=== PATIENT | male | born 1960 | race Caucasian/White ===

== ENCOUNTER 2016-08-12 14:14 | Emergency (ER) | payer MEDICARE, OTHER, MEDICAID | END 2016-08-12 17:05 | disposition left against medical advice (07) | LOC: UCEAST 14:14 | DX: R50.9 Fever, unspecified (principal); Z53.21 Procedure and treatment not carried out due to patient leaving prior to being seen by health care provider ==

== ENCOUNTER 2016-08-12 20:24 | Emergency (ER) | payer MEDICARE, OTHER, MEDICAID ==
[2016-08-12 22:50] VITALS: BP 117/70
--- NOTE | 2016-08-12 22:58 | UC ---
Respiratory Complaint HPI - HPI Summary HPI Summary: 3 DAYS OF COUGH AND FEVER. REPORTS HE FEELS SLIGHTLY ACHY. DENIES ST, EAR PAIN, SOB, N/V/D. DID GET A FLU SHOT THIS SEASON. TMAX 103. EARLIER TODAY WAS 100.1 AND NOW IS AFEBRILE. STATES HE FEELS MAYBE A BIT BETTER TODAY THAN YESTERDAY. - History of Current Complaint Chief Complaint: UCRespiratory Stated Complaint: FLU SYMPTOMS Time Seen by Provider: 08/12/16 22:41 Hx Obtained From: Patient Onset/Duration: Gradual Onset, Lasting Days, Still Present Timing: Constant Severity Initially: Moderate Severity Currently: Moderate Pain Intensity: 0 Pain Scale Used: 0-10 Numeric Character: Cough: Nonproductive Aggravating Factors: Nothing Alleviating Factors: Nothing Associated Signs And Symptoms: Positive: Fever, URI, Nasal Congestion. Negative : Dyspnea, Chills, Pleuritic Chest Pain, Wheezing, Hemoptysis, Dizziness, Calf Pain, Calf Swelling, Edema, Hoarseness, Sinus Discomfort - Allergies/Home Medications Allergies/Adverse Reactions: Allergies Allergy/AdvReac Type Severity Reaction Status Date / Time CATS Allergy Unknown Unknown Uncoded 08/12/16 22:50 Reaction Details SEASONAL ALLERGIES Allergy Unknown Unknown Uncoded 08/12/16 22:50 Reaction Details Home Medications: Home Medications Acetaminophen TAB* [Tylenol TAB*] 650 mg PO Q4H PRN 08/12/16 [History Confirmed 08/12/16] Ibuprofen TAB* [Advil TAB*] 2 tab PO Q6H PRN 08/12/16 [History Confirmed ] Lszlzwur-[place] [Triple Antibiotic] 1 oin EX 08/12/16 [History] guaiFENesin LIQ* [Robitussin*] 08/12/16 [History] PMH/Surg Hx/FS Hx/Imm Hx Endocrine History Of: Reports: Thyroid Disease - HX THYROID CA Denies: Diabetes Cardiovascular History Of: Denies: Congestive Heart Failure GI/ History Of: Reports: Gall Bladder Disease, Kidney Stones Cancer History Of: Reports: Colorectal Cancer - Surgical History Surgical History: Yes Surgery Procedure, Year, and Place: CHOLECYSTECTOMY - Family History Known Family History: Positive: Other - positive FMH for laceration Family History: PT DOES NOT KNOW HIS FAMILY HX - Social History Alcohol Use: None Substance Use Type: None Smoking Status (MU): Never Smoked Tobacco - Immunization History Most Recent Influenza Vaccination: 01/2015 Most Recent Tetanus Shot: unknown Most Recent Pneumonia Vaccination: Never Review of Systems Constitutional: Fever ENT: Nasal Discharge Respiratory: Cough Cardiovascular: Negative Gastrointestinal: Negative Genitourinary: Negative All Other Systems Reviewed And Are Negative: Yes Physical Exam Triage Information Reviewed: Yes Appearance: Well-Appearing, No Pain Distress, Well-Nourished Vital Signs: Initial Vital Signs Temp 97.7 F 08/12/16 22:41 Pulse 76 08/12/16 22:41 Resp 18 08/12/16 22:41 BP 117/70 08/12/16 22:41 Pulse Ox 97 08/12/16 22:41 Vital Signs Reviewed: Yes Eyes: Positive: Conjunctiva Clear ENT: Positive: Hearing grossly normal, Pharynx normal, Other: - TMS NOT VISUALIZED DUE TO OBSTRUCTION BY CERUMEN Neck: Positive: Supple, Nontender, No Lymphadenopathy Respiratory Exam: Normal Cardiovascular Exam: Normal Abdomen Description: Positive: Soft Musculoskeletal: Positive: No Edema Neurological: Positive: Alert Psychological: Positive: Age Appropriate Behavior Skin: Negative: rashes UC Diagnostic Evaluation - Laboratory O2 Sat by Pulse Oximetry: 97 Respiratory Course/Dx - Differential Dx/Diagnosis Provider Diagnoses: ACUTE VIRAL SYNDROME Discharge - Discharge Plan Condition: Stable Disposition: HOME Patient Education Materials: Upper Respiratory Infection (ED), Viral Syndrome ( ED) Referrals: Justin Muhammad MD [Primary Care Provider] - If Needed Additional Instructions: NO EVIDENCE OF BACTERIAL INFECTION ON EXAM TODAY. YOUR SYMPTOMS ARE LIKELY VIRALLY MEDIATED AND SHOULD CONTINUE TO IMPROVE. REST, HYDRATE AND TAKE OTC IBUPROFEN NEEDED. SEEK FOLLOW-UP WITH YOUR PCP OR HERE IF YOU ARE NOT IMPROVING EXPECTED OVER THE NEXT 1-2 WEEKS.
== END 2016-08-12 23:10 | disposition home or self-care (01) ==
LOC: UCEAST 20:24
DX: R07.89 Other chest pain (principal); R06.02 Shortness of breath
CPT/HCPCS: 99211; G0463

== ENCOUNTER 2017-07-17 15:44 | Emergency (ER) | payer MEDICARE, OTHER, MEDICAID ==
[2017-07-17] MEDS ORDERED: Ondansetron INJ* 2 MG/ML VIAL IV ONE (17:49)
[2017-07-17] MEDS ORDERED: NS 0.9% 1000 ML* 1,000 ML IV ONE (17:49)
[2017-07-17] MEDS ORDERED: Morphine INJ* 4 MG/ML 1 ML CARPUJECT IV ONE (17:49)
[2017-07-17 18:18] LABS: ABS Basophils 0 10^3/ul (0-0.2); ABS Eosinophils 0 10^3/ul (0-0.6); ABS Lymphocytes 0.4 10^3/ul (1.0-4.8); ABS Monocytes 0.6 10^3/ul (0-0.8); ABS Neutrophils 9.4 10^3/ul (1.5-7.7); ABS Nucleated RBC 0 10^3/ul; Eosinophil % 0.1 % (0-6); Hematocrit 44 % (42-52); Hemoglobin 15.3 g/dl (14.0-18.0); Lymphocyte % 3.5 % (25-47); Mean Corpuscular HGB Conc 35 g/dl (31-36); Mean Corpuscular Hemoglobin 31 pg (27-31); Mean Corpuscular Volume 89 fL (80-94); Mean Platelet Volume 7 um3 (7.4-10.4); Nucleated Red Blood Cells % 0; Platelet Count 186 10^3/ul (150-450); Red Blood Count 4.94 10^6/ul (4.0-5.4); Red Cell Distribution Width 14 % (10.5-15); White Blood Count 10.4 10^3/ul (3.5-10.8)
[2017-07-17] MEDS ORDERED: Morphine INJ* 4 MG/ML 1 ML SYRINGE (NEW SYRINGE VERSION) ONE (18:18)
[2017-07-17 18:31] LABS: EGFR Non-African American 68.5 (>60)
--- NOTE | 2017-07-17 19:13 | ED ---
Abdominal Pain/Male - HPI Summary HPI Summary: Patient is a 56-year-old male who resides at a long term who presents with a staff member with a chief complaint of right lower quadrant pain he was sent here from [place] to rule out an appendicitis. He states the pain began this morning. On physical exam at [place] they noted him to have a fever and also to be nauseous, but denies any vomiting. Denies constipation or diarrhea. Denies any nausea currently. He is to have a 7 out of 10 right lower quadrant pain which is nonradiating. Denies any cough, respiratory symptoms or congestion. He denies any other pain or complications. He is a poor historian , but staff member at bedside gives a good history of current present illness. Symptoms are aggravated by nothing and relieved with nothing. He has taken ibuprofen 6 mg at noon today without improvement. - History of Current Complaint Chief Complaint: EDAbdPain Stated Complaint: ABD PAIN/ FEVER Time Seen by Provider: 07/17/17 17:46 Hx Obtained From: Patient, Family/Shell Sieve Operator Onset/Duration: Sudden Onset Timing: Constant Severity Initially: Moderate Severity Currently: Moderate Pain Intensity: 2 Pain Scale Used: 0-10 Numeric Radiates: No Aggravating Factor(s): Nothing Alleviating Factor(s): Nothing - Risk Factors Testicular Torsion: Negative Cardiac Risk Factors: Negative - Allergies/Home Medications Allergies/Adverse Reactions: Allergies Allergy/AdvReac Type Severity Reaction Status Date / Time CATS Allergy Unknown Unknown Uncoded 09/09/16 10:26 Reaction Details SEASONAL ALLERGIES Allergy Unknown Unknown Uncoded 09/09/16 10:26 Reaction Details PMH/Surg Hx/FS Hx/Imm Hx Previously Healthy: Yes Endocrine/Hematology History: Reports: Hx Thyroid Disease - HX THYROID CA Denies: Hx Diabetes Cardiovascular History: Denies: Hx Congestive Heart Failure GI History: Reports: Hx Gall Bladder Disease History: Reports: Hx Kidney Stones Musculoskeletal History: Reports: Hx Back Problems Neurological History: Reports: Hx Headaches - Cancer History Cancer Type, Location and Year: COLON CA, THYROID CA - Surgical History Surgery Procedure, Year, and Place: CHOLECYSTECTOMY - Immunization History Hx Pertussis Vaccination: No Immunizations Up to Date: Unable to Obtain/Confirm Infectious Disease History: No Infectious Disease History: Denies: History Other Infectious Disease, Traveled Outside the [place] in Last 30 Days - Family History Known Family History: Positive: None, Other - positive FMH for laceration Family History: PT DOES NOT KNOW HIS FAMILY HX - Social History Occupation: Unemployed, Disabled Lives: [facility] Alcohol Use: None Hx Substance Use: No Substance Use Type: Reports: None Hx Tobacco Use: No Smoking Status (MU): Never Smoked Tobacco Review of Systems Constitutional: Negative Negative: Fever, Chills, Fatigue, Skin Diaphoresis Eyes: Negative Cardiovascular: Negative Respiratory: Negative Positive: Abdominal Pain, Nausea. Negative: Vomiting, Diarrhea Genitourinary: Negative Positive: no symptoms reported, see HPI Musculoskeletal: Negative Skin: Negative All Other Systems Reviewed And Are Negative: Yes Physical Exam Triage Information Reviewed: Yes Vital Signs On Initial Exam: Initial Vitals Temp Pulse Resp BP Pulse Ox 100.2 F 88 16 103/64 94 07/17/17 15:55 07/17/17 15:55 07/17/17 15:55 07/17/17 15:55 07/17/17 15:55 Vital Signs Reviewed: Yes Appearance: Positive: Well-Appearing, Well-Nourished Skin: Positive: Warm, Skin Color Reflects Adequate Perfusion Head/Face: Positive: Normal Head/Face Inspection Eyes: Positive: EOMI, BANDAR, Conjunctiva Clear Neck: Positive: Supple, No Lymphadenopathy Respiratory/Lung Sounds: Positive: Clear to Auscultation, Breath Sounds Present Cardiovascular: Positive: Normal, Pulses are Symmetrical in both Upper and Lower Extremities Musculoskeletal: Positive: Strength/ROM Intact Neurological: Positive: Speech Normal Psychiatric: Positive: Normal, Affect/Mood Appropriate AVPU Assessment: Alert Diagnostics - Vital Signs Vital Signs Temp Pulse Resp BP Pulse Ox 07/17/17 18:29 16 07/17/17 15:55 100.2 F 88 16 103/64 94 - Laboratory Lab Results: Lab Results 07/17/17 07/17/17 07/17/17 Range/Units 18:02 18:02 18:02 WBC 10.4 (3.5-10.8) 10^3/ul RBC 4.94 (4.0-5.4) 10^6/ul Hgb 15.3 (14.0-18.0) g/dl Hct 44 (42-52) % MCV 89 (80-94) fL MCH 31 (27-31) pg MCHC 35 (31-36) g/dl RDW 14 (10.5-15) % Plt Count 186 (150-450) 10^3/ul MPV 7 L (7.4-10.4) um3 Neut % (Auto) 90.5 H (38-83) % Lymph % (Auto) 3.5 L (25-47) % [place] % (Auto) 5.7 (0-7) % Eos % (Auto) 0.1 (0-6) % Baso % (Auto) 0.2 (0-2) % Absolute Neuts (auto) 9.4 H (1.5-7.7) 10^3/ul Absolute Lymphs (auto) 0.4 L (1.0-4.8) 10^3/ul Absolute Monos (auto) 0.6 (0-0.8) 10^3/ul Absolute Eos (auto) 0 (0-0.6) 10^3/ul Absolute Basos (auto) 0 (0-0.2) 10^3/ul Absolute Nucleated RBC 0 10^3/ul Nucleated RBC % 0 APTT (26.0-36.3) seconds Sodium 137 (133-145) mmol/L Potassium 3.4 L (3.5-5.0) mmol/L Chloride 103 (101-111) mmol/L Carbon Dioxide 25 (22-32) mmol/L Anion Gap 9 (2-11) mmol/L BUN 26 H (6-24) mg/dL Creatinine 1.11 (0.67-1.17) mg/dL Est GFR ( Amer) 88.1 (>60) Est GFR (Non-Af Amer) 68.5 (>60) BUN/Creatinine Ratio 23.4 H (8-20) Glucose 106 H (70-100) mg/dL Lactic Acid 1.4 (0.5-2.0) mmol/L Calcium 9.3 (8.6-10.3) mg/dL Magnesium Pending Total Bilirubin 1.00 (0.2-1.0) mg/dL AST 25 (13-39) U/L ALT 40 (7-52) U/L Alkaline Phosphatase 37 (34-104) U/L Total Creatine Kinase 88 (10-223) U/L C-Reactive Protein 18.04 H (< 5.00) mg/L Total Protein 7.5 (6.4-8.9) g/dL Albumin 4.4 (3.2-5.2) g/dL Globulin 3.1 (2-4) g/dL Albumin/Globulin Ratio 1.4 (1-3) Lipase 18 (11.0-82.0) U/L 07/17/17 Range/Units 18:02 WBC (3.5-10.8) 10^3/ul RBC (4.0-5.4) 10^6/ul Hgb (14.0-18.0) g/dl Hct (42-52) % MCV (80-94) fL MCH (27-31) pg MCHC (31-36) g/dl RDW (10.5-15) % Plt Count (150-450) 10^3/ul MPV (7.4-10.4) um3 Neut % (Auto) (38-83) % Lymph % (Auto) (25-47) % [place] % (Auto) (0-7) % Eos % (Auto) (0-6) % Baso % (Auto) (0-2) % Absolute Neuts (auto) (1.5-7.7) 10^3/ul Absolute Lymphs (auto) (1.0-4.8) 10^3/ul Absolute Monos (auto) (0-0.8) 10^3/ul Absolute Eos (auto) (0-0.6) 10^3/ul Absolute Basos (auto) (0-0.2) 10^3/ul Absolute Nucleated RBC 10^3/ul Nucleated RBC % APTT 27.7 (26.0-36.3) seconds Sodium (133-145) mmol/L Potassium (3.5-5.0) mmol/L Chloride (101-111) mmol/L Carbon Dioxide (22-32) mmol/L Anion Gap (2-11) mmol/L BUN (6-24) mg/dL Creatinine (0.67-1.17) mg/dL Est GFR ( Amer) (>60) Est GFR (Non-Af Amer) (>60) BUN/Creatinine Ratio (8-20) Glucose (70-100) mg/dL Lactic Acid (0.5-2.0) mmol/L Calcium (8.6-10.3) mg/dL Magnesium Total Bilirubin (0.2-1.0) mg/dL AST (13-39) U/L ALT (7-52) U/L Alkaline Phosphatase (34-104) U/L Total Creatine Kinase (10-223) U/L C-Reactive Protein (< 5.00) mg/L Total Protein (6.4-8.9) g/dL Albumin (3.2-5.2) g/dL Globulin (2-4) g/dL Albumin/Globulin Ratio (1-3) Lipase (11.0-82.0) U/L Result Diagrams: 07/17/17 18:02 07/17/17 18:02 Lab Statement: Any lab studies that have been ordered have been reviewed, and results considered in the medical decision making process. Abdominal Pain Fem Course/Dx - Course Course Of Treatment: During the course of treatment, the patient is evaluated for right lower quadrant pain to rule out appendicitis. Labs obtained. Labs are unremarkable except for an elevated CRP. He is febrile on arrival at 102.3 , however he decreases one hour later to 99.1 he is given Zofran 4 mg, morphine 4 mg and [address] abdomen and pelvis obtained. Impression is no finding suspicious for abdominal pelvic metastatic disease. Appearance of the colon with long segment fluid distention is suspicious for diarrhea disease. Negative for bowel obstruction or perienteric inflammatory change. Upon last visit, it is noted that he had had right-sided abdominal pain and was found to have a pneumonia for this reason, I have added a X-ray. x-ray obtained which shows minimal bibasilar linear subsegmental atelectasis. He is okay for discharge at this time and I have advised he take Tylenol 650 mg 3 times daily for any discomfort. - Diagnoses Provider Diagnoses: Abdominal pain Discharge - Discharge Plan Condition: Stable Disposition: HOME Patient Education Materials: Abdominal Pain (ED) Referrals: Justin Muhammad MD [Primary Care Provider] - Additional Instructions: Tylenol 650 mg up to 3 times daily for any discomfort Please follow-up with your PCP
--- NOTE | 2017-07-17 19:27 | RAD ---
Indication: Abdominal pain, fever. Comparison: September 09, 2016 chest radiograph and August 19, [address] Technique: Upright AP 1913 hours Report: Minimal bibasilar linear subsegmental atelectasis. Negative for pleural effusion or pneumothorax. The heart, pulmonary vasculature, and mediastinal contours are unremarkable. Negative for free air beneath the diaphragm. IMPRESSION: Minimal bibasilar linear subsegmental atelectasis.
[2017-07-17] MEDS ORDERED: Iohexol 300* (CONTRAST) 10 ML SDV IV ONE (19:32)
[2017-07-17 19:57] LABS: Urine Appearance Clear; Urine Blood Negative (Negative); Urine Color Yellow; Urine Ketones 1+ (Negative); Urine Protein Negative (Negative); Urine Specific Gravity 1.027 (1.010-1.030); Urine Urobilinogen Negative (Negative)
--- NOTE | 2017-07-17 20:33 | RAD ---
INDICATION: Abdominal pain and fever. Assess for appendicitis. Post cholecystectomy. History of colon and thyroid cancer. COMPARISON: August 19, 2015 CT. TECHNIQUE: Multidetector CT images were obtained from the lung bases to the ischial tuberosities with 123 mL Omnipaque 300 IV and oral contrast. Multiplanar reformation. REPORT: Minimal basilar subsegmental atelectasis. Unremarkable liver. Post cholecystectomy. Negative for biliary dilatation. Unremarkable pancreas and spleen. Gastric distention with contrast and food stuff. Negative for CT abnormality of the small bowel. Unremarkable colonic bowel anastomosis at the transverse colon. Fluid distention of the colon without abrupt transition point. Moderate more formed appearing stool at the sigmoid colon. Negative for significant rectal distention with stool. Normal appendix visualized medial to the cecum. Negative for ascites, free air, hernias. Normal adrenal glands. Unremarkable kidneys with symmetric nephrograms and pyelograms. Unremarkable nondilated ureters and distended urinary bladder. Symmetric seminal vesicles. Negative for lymphadenopathy. Normal diameter abdominal aorta and iliac arteries. Physiologic distention of the IVC. Polyarticular degenerative arthropathy. Ankylosis of the LEFT sacroiliac joint. Negative for suspicious focal osseous lesions. IMPRESSION: 1. No finding suspicious for abdominal pelvic metastatic disease. 2. Appearance of the colon with long segment fluid distention is suspicious for diarrhea disease. Negative for bowel obstruction or perienteric inflammatory change. Correlate with clinical history.
[2017-07-17 20:43] VITALS: BP 106/50
== END 2017-07-17 20:49 | disposition home or self-care (01) ==
LOC: ED 15:44
DX: R10.31 Right lower quadrant pain (principal); R11.0 Nausea; R19.7 Diarrhea, unspecified
CPT/HCPCS: 36415; 71045; 74177; 80053; 81003; 82550; 83605; 83690; 83735; 85025; 85730; 86140; 87040; 96374; 96375; 99283; J2270; J2405; Q9967

== ENCOUNTER 2017-07-20 00:13 | Emergency (ER) | payer MEDICARE, OTHER, MEDICAID ==
[2017-07-20] MEDS ORDERED: NS 0.9% 1000 ML* 2,000 ML IV ONE (00:48)
[2017-07-20] MEDS ORDERED: Hyoscyamine TAB* 0.125 MG PO ONE (00:49)
[2017-07-20 01:13] LABS: Urine Appearance Clear; Urine Blood 2+ (Negative); Urine Color Yellow; Urine Ketones Negative (Negative); Urine Protein 1+(30 mg/dL) (Negative); Urine Specific Gravity 1.029 (1.010-1.030); Urine Urobilinogen Negative (Negative)
[2017-07-20 02:45] LABS: ABS Basophils 0 10^3/ul (0-0.2); ABS Eosinophils 0.1 10^3/ul (0-0.6); ABS Lymphocytes 0.7 10^3/ul (1.0-4.8); ABS Monocytes 0.8 10^3/ul (0-0.8); ABS Neutrophils 5.7 10^3/ul (1.5-7.7); ABS Nucleated RBC 0 10^3/ul; Eosinophil % 1.1 % (0-6); Hematocrit 43 % (42-52); Hemoglobin 14.9 g/dl (14.0-18.0); Lymphocyte % 9.7 % (25-47); Mean Corpuscular HGB Conc 35 g/dl (31-36); Mean Corpuscular Hemoglobin 31 pg (27-31); Mean Corpuscular Volume 89 fL (80-94); Mean Platelet Volume 7 um3 (7.4-10.4); Nucleated Red Blood Cells % 0; Platelet Count 177 10^3/ul (150-450); Red Blood Count 4.87 10^6/ul (4.0-5.4); Red Cell Distribution Width 14 % (10.5-15); White Blood Count 7.3 10^3/ul (3.5-10.8)
[2017-07-20 03:06] LABS: EGFR Non-African American 87.3 (>60)
[2017-07-20] MEDS ORDERED: Loperamide CAP* 2 MG PO ONE (04:08)
[2017-07-20 04:09] VITALS: BP 141/78
--- NOTE | 2017-07-20 05:48 | ED ---
Chung Florentino Nikita, scribed for Solomon Nolan MD on 07/20/17 at 0051 . Abdominal Pain/Male - HPI Summary HPI Summary: LEVEL 5 CAVEAT DUE TO MENTAL RETARDATION. This patient is a 56 year old M BIBA from a intermediate to ED with a chief complaint of abdominal pain since 3 days ago. The patient rates the pain 5/10 in severity. Symptoms aggravated by eating. Symptoms alleviated by nothing. Patient reports diarrhea (watery, all day today). Refractive Surgeon reports that no one else in the intermediate has similar symptoms. Pt reports he has had no surgeries on his abdomen. The patient was in the ED 3 days ago for similar symptoms. - History of Current Complaint Chief Complaint: EDAbdPain Stated Complaint: ABD PAIN Time Seen by Provider: 07/20/17 00:15 Hx Obtained From: Patient, Family/Refractive Surgeon, Other: - LEVEL 5 CAVEAT DUE TO MENTAL RETARDATION Onset/Duration: Sudden Onset, Lasting Days, Still Present Timing: Constant, Lasting Days Severity Initially: Moderate Severity Currently: Moderate Pain Intensity: 5 Pain Scale Used: 0-10 Numeric Aggravating Factor(s): Food Alleviating Factor(s): Nothing Associated Signs And Symptoms: Positive: Other - Patient reports diarrhea ( watery, all day today). - Allergies/Home Medications Allergies/Adverse Reactions: Allergies Allergy/AdvReac Type Severity Reaction Status Date / Time CATS Allergy Unknown Unknown Uncoded 09/09/16 10:26 Reaction Details SEASONAL ALLERGIES Allergy Unknown Unknown Uncoded 09/09/16 10:26 Reaction Details PMH/Surg Hx/FS Hx/Imm Hx Endocrine/Hematology History: Reports: Hx Thyroid Disease - HX THYROID CA Denies: Hx Diabetes Cardiovascular History: Denies: Hx Congestive Heart Failure GI History: Reports: Hx Gall Bladder Disease History: Reports: Hx Kidney Stones Musculoskeletal History: Reports: Hx Back Problems Neurological History: Reports: Hx Headaches - Cancer History Cancer Type, Location and Year: COLON CA, THYROID CA - Surgical History Surgery Procedure, Year, and Place: CHOLECYSTECTOMY - Immunization History Date of Influenza Vaccine: Fall 2016 Infectious Disease History: No Infectious Disease History: Denies: History Other Infectious Disease, Traveled Outside the [place] in Last 30 Days - Family History Known Family History: Positive: Other - positive FMH for laceration Family History: PT DOES NOT KNOW HIS FAMILY HX - Social History Lives: Custodial Alcohol Use: None Hx Substance Use: No Substance Use Type: Reports: None Hx Tobacco Use: No Smoking Status (MU): Never Smoked Tobacco Review of Systems Positive: Abdominal Pain, Diarrhea All Other Systems Reviewed And Are Negative: No Physical Exam - Summary Physical Exam Summary: LEVEL 5 DUE TO MENTAL RETARDATION Appearance: Well appearing, no pain distress Skin: warm, dry, reflects adequate perfusion Head/face: normal Eyes: EOMI, BANDAR ENT: normal, dry mucous membranes Neck: supple, non-tender Respiratory: CTA, breath sounds present Cardiovascular: RRR, pulses symmetrical Abdomen: non-tender, soft, no tympany, no distension Bowel: present and normal Musculoskeletal: normal, strength/ROM intact Neuro: normal, sensory motor intact, A&Ox3 Triage Information Reviewed: Yes Vital Signs On Initial Exam: Initial Vitals Temp Pulse Resp BP Pulse Ox 97.1 F 86 18 135/72 96 07/20/17 00:17 07/20/17 00:17 07/20/17 00:17 07/20/17 00:17 07/20/17 00:17 Vital Signs Reviewed: Yes Completion Of Physical Exam Limited Due To: Level 5 - MENTAL RETARDATION Diagnostics - Vital Signs Vital Signs Temp Pulse Resp BP Pulse Ox 07/20/17 00:46 78 95 07/20/17 00:44 122/69 07/20/17 00:17 97.1 F 86 18 135/72 96 - Laboratory Lab Results: Lab Results 07/20/17 07/20/17 07/20/17 Range/Units 00:37 02:30 02:30 WBC 7.3 (3.5-10.8) 10^3/ul RBC 4.87 (4.0-5.4) 10^6/ul Hgb 14.9 (14.0-18.0) g/dl Hct 43 (42-52) % MCV 89 (80-94) fL MCH 31 (27-31) pg MCHC 35 (31-36) g/dl RDW 14 (10.5-15) % Plt Count 177 (150-450) 10^3/ul MPV 7 L (7.4-10.4) um3 Neut % (Auto) 78.4 (38-83) % Lymph % (Auto) 9.7 L (25-47) % [place] % (Auto) 10.5 H (0-7) % Eos % (Auto) 1.1 (0-6) % Baso % (Auto) 0.3 (0-2) % Absolute Neuts (auto) 5.7 (1.5-7.7) 10^3/ul Absolute Lymphs (auto) 0.7 L (1.0-4.8) 10^3/ul Absolute Monos (auto) 0.8 (0-0.8) 10^3/ul Absolute Eos (auto) 0.1 (0-0.6) 10^3/ul Absolute Basos (auto) 0 (0-0.2) 10^3/ul Absolute Nucleated RBC 0 10^3/ul Nucleated RBC % 0 Sodium 140 (133-145) mmol/L Potassium 3.1 L (3.5-5.0) mmol/L Chloride 110 (101-111) mmol/L Carbon Dioxide 20 L (22-32) mmol/L Anion Gap 10 (2-11) mmol/L BUN 22 (6-24) mg/dL Creatinine 0.90 (0.67-1.17) mg/dL Est GFR ( Amer) 112.3 (>60) Est GFR (Non-Af Amer) 87.3 (>60) BUN/Creatinine Ratio 24.4 H (8-20) Glucose 98 (70-100) mg/dL Lactic Acid (0.5-2.0) mmol/L Calcium 8.5 L (8.6-10.3) mg/dL Total Bilirubin 0.60 (0.2-1.0) mg/dL AST 48 H (13-39) U/L ALT 153 H (7-52) U/L Alkaline Phosphatase 43 (34-104) U/L C-Reactive Protein 6.20 H (< 5.00) mg/L Total Protein 6.7 (6.4-8.9) g/dL Albumin 3.8 (3.2-5.2) g/dL Globulin 2.9 (2-4) g/dL Albumin/Globulin Ratio 1.3 (1-3) Lipase 22 (11.0-82.0) U/L Urine Color Yellow Urine Appearance Clear Urine pH 6.0 (5-9) Ur Specific [place] 1.029 (1.010-1.030) Urine Protein 1+(30 mg/dl) A (Negative) Urine Ketones Negative (Negative) Urine Blood 2+ A (Negative) Urine Nitrate Negative (Negative) Urine Bilirubin Negative (Negative) Urine Urobilinogen Negative (Negative) Ur Leukocyte Esterase Negative (Negative) Urine WBC (Auto) Absent (Absent) Urine RBC (Auto) 3+(>10/hpf) A (Absent) Ur Squamous Epith Cells Present A (Absent) Urine Bacteria Absent (Absent) Urine Glucose Negative (Negative) 07/20/17 Range/Units 02:30 WBC (3.5-10.8) 10^3/ul RBC (4.0-5.4) 10^6/ul Hgb (14.0-18.0) g/dl Hct (42-52) % MCV (80-94) fL MCH (27-31) pg MCHC (31-36) g/dl RDW (10.5-15) % Plt Count (150-450) 10^3/ul MPV (7.4-10.4) um3 Neut % (Auto) (38-83) % Lymph % (Auto) (25-47) % [place] % (Auto) (0-7) % Eos % (Auto) (0-6) % Baso % (Auto) (0-2) % Absolute Neuts (auto) (1.5-7.7) 10^3/ul Absolute Lymphs (auto) (1.0-4.8) 10^3/ul Absolute Monos (auto) (0-0.8) 10^3/ul Absolute Eos (auto) (0-0.6) 10^3/ul Absolute Basos (auto) (0-0.2) 10^3/ul Absolute Nucleated RBC 10^3/ul Nucleated RBC % Sodium (133-145) mmol/L Potassium (3.5-5.0) mmol/L Chloride (101-111) mmol/L Carbon Dioxide (22-32) mmol/L Anion Gap (2-11) mmol/L BUN (6-24) mg/dL Creatinine (0.67-1.17) mg/dL Est GFR ( Amer) (>60) Est GFR (Non-Af Amer) (>60) BUN/Creatinine Ratio (8-20) Glucose (70-100) mg/dL Lactic Acid 0.8 (0.5-2.0) mmol/L Calcium (8.6-10.3) mg/dL Total Bilirubin (0.2-1.0) mg/dL AST (13-39) U/L ALT (7-52) U/L Alkaline Phosphatase (34-104) U/L C-Reactive Protein (< 5.00) mg/L Total Protein (6.4-8.9) g/dL Albumin (3.2-5.2) g/dL Globulin (2-4) g/dL Albumin/Globulin Ratio (1-3) Lipase (11.0-82.0) U/L Urine Color Urine Appearance Urine pH (5-9) Ur Specific [place] (1.010-1.030) Urine Protein (Negative) Urine Ketones (Negative) Urine Blood (Negative) Urine Nitrate (Negative) Urine Bilirubin (Negative) Urine Urobilinogen (Negative) Ur Leukocyte Esterase (Negative) Urine WBC (Auto) (Absent) Urine RBC (Auto) (Absent) Ur Squamous Epith Cells (Absent) Urine Bacteria (Absent) Urine Glucose (Negative) Result Diagrams: 07/20/17 02:30 07/20/17 02:30 Lab Statement: Any lab studies that have been ordered have been reviewed, and results considered in the medical decision making process. Abdominal Pain Fem Course/Dx - Course Course Of Treatment: MR in intermediate with recurrent diarrhea. No abx. No significant pain. Well appearing. Watery stool that is neg C diff. Culture sent. Minor LFT elevation. No RUQ pain. Tx antidiarrheals. F/U closely PMD, repeat LFTs. - Diagnoses Differential Diagnosis/HQI/PQRI: Other - C. diff colitis, non-specific colitis vs enteritis, infectious colitis Provider Diagnoses: Enteritis, Elevated LFTs Discharge - Discharge Plan Condition: Good Disposition: HOME Prescriptions: Hyoscyamine Sulfate 0.125 mg PO Q6H PRN #20 tab.rapdis PRN Reason: abdominal cramping Loperamide CAP* [Imodium CAP*] 2 mg PO Q4H PRN #30 cap MDD 6 PRN Reason: Diarrhea Patient Education Materials: Enteritis (ED) Referrals: Justin Muhammad MD [Primary Care Provider] - Additional Instructions: Call tomorrow for an appt to be seen. Liver function tests should be followed. Return with vomiting, pain, fever, worse, pain in the Right upper abdomen or other concerns. Keep well hydrated. The documentation as recorded by the Chung jim Nikita accurately reflects the service I personally performed and the decisions made by me, Solomon Nolan MD.
== END 2017-07-20 04:25 | disposition home or self-care (01) ==
LOC: ED 00:13
DX: K52.9 Noninfective gastroenteritis and colitis, unspecified (principal); R79.89 Other specified abnormal findings of blood chemistry; Z85.038 Personal history of other malignant neoplasm of large intestine; Z85.850 Personal history of malignant neoplasm of thyroid; Z87.442 Personal history of urinary calculi
CPT/HCPCS: 36415; 80053; 81003; 81015; 83605; 83690; 85025; 86140; 87040; 87045; 87046; 87493; 87899; 96360; 99284; A9270-GY